=== PATIENT | female | born 1995 | race African-American/Black ===

== ENCOUNTER 2017-07-31 12:30 | Emergency (ER) | payer SELFPAY ==
--- NOTE | 2017-07-31 13:35 | EDM.PDOC ---
ED HPI GENERAL MEDICAL PROBLEM - General Chief Complaint: General Stated Complaint: BODY ACHES Time Seen by Provider: 07/31/17 13:06 Source of Information: Reports: Patient History Limitations: Reports: No Limitations - History of Present Illness INITIAL COMMENTS - FREE TEXT/NARRATIVE: 22-year-old female presents for evaluation and treatment of body aches. Patient reports she was sick with viral flulike symptoms about 3 weeks ago. These resolve. Now over the past week she has developed pain in her bilateral forearms , bilateral legs and low back. Reports the pain first started in her bilateral forearms. Over the last 2 days is now migrated to involve bilateral legs and low back. She reports that this feels like it is more muscular and not in the joints. Denies any joint swelling. She denies any fevers, chills, nausea, vomiting, abdominal pain, chest pain shunt, shortness of breath, urinary symptoms, numbness or tingling in the extremities, erythema or swelling in the arms or legs. Patient's approximately 5 weeks . Patient relocated to [place] from [place] in April. She went home to [place] for a visit again in June. No history of any sickle cell disease. States she's never had anything like this before. No recent strenuous workouts. 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 Generalized Pain Score (Numeric/FACES): 8 - Related Data Allergies Allergy/AdvReac Type Severity Reaction Status Date / Time banana Allergy Swelling Verified 07/31/17 12:42 Home Meds: Home Meds . [No Known Home Meds] 07/31/17 [History] Past Medical History [facility] History: Reports: Social & Family History - Family History Family Medical History: Noncontributory - Tobacco Use Smoking Status *Q: Former Smoker Years of Tobacco use: 1 Packs/Tins Daily: 0.5 Used Tobacco, but Quit: Yes Month Tobacco Last Used: 1 - Caffeine Use Caffeine Use: Reports: Soda, Tea - Recreational Drug Use Recreational Drug Use: No ED ROS GENERAL - Review of Systems Review Of Systems: See Below Constitutional: Reports: Other (reports bodyaches). Denies: Fever, Chills Respiratory: Denies: Shortness of Breath Cardiovascular: Denies: Chest Pain GI/Abdominal: Denies: Abdominal Pain, Nausea, Vomiting : Denies: Dysuria Musculoskeletal: Reports: Arm Pain (bilateral), Back Pain (lower back). Denies : Joint Pain, Joint Swelling Skin: Denies: Erythema Neurological: Denies: Numbness, Tingling, Weakness ED EXAM, GENERAL - Physical Exam Exam: See Below Exam Limited By: No Limitations General Appearance: Alert, WD/WN, No Apparent Distress, Obese Eye Exam: Bilateral Eye: Normal Inspection Ears: Normal External Exam Nose: Normal Inspection Throat/Mouth: Normal Inspection, Normal Voice, No Airway Compromise Neck: Normal Inspection Respiratory/Chest: No Respiratory Distress, Lungs Clear, Normal Breath Sounds, Chest Non-Tender Cardiovascular: Normal Peripheral Pulses, Regular Rate, Rhythm, No Murmur Peripheral Pulses: 3+: Radial (L), Radial (R), Posterior Tibial (L), Posterior Tibial (R), Dorsalis Pedis (L), Dorsalis Pedis (R) GI/Abdominal: Normal Bowel Sounds, Soft, Non-Tender Back Exam: Normal Inspection Extremities: Normal Inspection, Other (tendernes to palpation to the bilteral forearms) Neurological: Alert, Oriented, Normal Cognition, Normal Gait Psychiatric: Normal Affect, Normal Mood Skin Exam: Warm, Dry, Normal Color Course - Vital Signs Last Recorded V/S: Last Vital Signs Temp 36.4 C 07/31/17 12:44 Pulse 88 07/31/17 12:44 Resp 16 07/31/17 12:44 BP 124/70 07/31/17 12:44 Pulse Ox 100 07/31/17 12:44 - Orders/Labs/Meds Orders: Active Orders 24 hr Category Date Time Status CULTURE STREP A CONFIRMATION [] Stat Lab 07/31/17 13:33 Results STREP SCRN A RAPID W CULT CONF [] Stat Lab 07/31/17 13:33 Results Labs: Laboratory Tests 07/31/17 07/31/17 07/31/17 Range/Units 13:36 13:40 13:40 WBC 5.20 (3.98-10.04) K/mm3 RBC 4.24 (3.98-5.22) M/mm3 Hgb 11.9 (11.2-15.7) gm/L Hct 36.2 (34.1-44.9) % MCV 85.4 (79.4-94.8) fl MCH 28.1 (25.6-32.2) pg MCHC 32.9 (32.2-35.5) g/dl RDW Std Deviation 45.8 (36.4-46.3) fL Plt Count 354 (182-369) K/mm3 MPV 10.4 (9.4-12.3) fl Neutrophils % (Manual) 64 H (40-60) % Band Neutrophils % 0 (0-10) % Lymphocytes % (Manual) 34 (20-40) % Atypical Lymphs % 0 % Monocytes % (Manual) 0 L (2-10) % Eosinophils % (Manual) 2 (0.7-5.8) % Basophils % (Manual) 0 L (0.1-1.2) Platelet Estimate Adequate RBC Morph Comment Normal Sodium 140 (136-145) mEq/L Potassium 3.7 (3.5-5.1) mEq/L Chloride 103 (98-107) mEq/L Carbon Dioxide 25 (21-32) mEq/L Anion Gap 15.7 H (5-15) BUN 11 (7-18) mg/dL Creatinine 0.8 (0.55-1.02) mg/dL Est Cr Clr Drug Dosing 92.79 mL/min Estimated GFR (MDRD) > 60 (>60) mL/min BUN/Creatinine Ratio 13.8 L (14-18) Glucose 86 (74-106) mg/dL Calcium 9.4 (8.5-10.1) mg/dL Total Bilirubin 0.4 (0.2-1.0) mg/dL AST 31 (15-37) U/L ALT 27 (14-59) U/L Alkaline Phosphatase 77 (46-116) U/L C-Reactive Protein (<1.0) mg/dL Total Protein 8.2 (6.4-8.2) g/dl Albumin 3.7 (3.4-5.0) g/dl Globulin 4.5 gm/dL Albumin/Globulin Ratio 0.8 L (1-2) TSH 3rd Generation 0.925 (0.516-4.13) uIU/mL HCG, Quant 1102.0 mIU/mL Urine Color Yellow (Yellow) Urine Appearance Clear (Clear) Urine pH 7.5 (5.0-8.0) Ur Specific [place] 1.025 (1.005-1.030) Urine Protein 1+ H (Negative) Urine Glucose (UA) Negative (Negative) Urine Ketones Negative (Negative) Urine Occult Blood Negative (Negative) Urine Nitrite Negative (Negative) Urine Bilirubin Negative (Negative) Urine Urobilinogen 1.0 (0.2-1.0) Ur Leukocyte Esterase Negative (Negative) Urine RBC 0-5 (0-5) /hpf Urine WBC 0-5 (0-5) /hpf Ur Epithelial Cells 10-20 H (0-5) /hpf Amorphous Sediment Moderate H (NOT SEEN) /hpf Urine Bacteria Moderate H (FEW) /hpf Urine Mucus Many H (FEW) /hpf Monoscreen (NEGATIVE) 07/31/17 07/31/17 Range/Units 13:40 13:40 WBC (3.98-10.04) K/mm3 RBC (3.98-5.22) M/mm3 Hgb (11.2-15.7) gm/L Hct (34.1-44.9) % MCV (79.4-94.8) fl MCH (25.6-32.2) pg MCHC (32.2-35.5) g/dl RDW Std Deviation (36.4-46.3) fL Plt Count (182-369) K/mm3 MPV (9.4-12.3) fl Neutrophils % (Manual) (40-60) % Band Neutrophils % (0-10) % Lymphocytes % (Manual) (20-40) % Atypical Lymphs % % Monocytes % (Manual) (2-10) % Eosinophils % (Manual) (0.7-5.8) % Basophils % (Manual) (0.1-1.2) Platelet Estimate RBC Morph Comment Sodium (136-145) mEq/L Potassium (3.5-5.1) mEq/L Chloride (98-107) mEq/L Carbon Dioxide (21-32) mEq/L Anion Gap (5-15) BUN (7-18) mg/dL Creatinine (0.55-1.02) mg/dL Est Cr Clr Drug Dosing mL/min Estimated GFR (MDRD) (>60) mL/min BUN/Creatinine Ratio (14-18) Glucose (74-106) mg/dL Calcium (8.5-10.1) mg/dL Total Bilirubin (0.2-1.0) mg/dL AST (15-37) U/L ALT (14-59) U/L Alkaline Phosphatase (46-116) U/L C-Reactive Protein < 0.2 (<1.0) mg/dL Total Protein (6.4-8.2) g/dl Albumin (3.4-5.0) g/dl Globulin gm/dL Albumin/Globulin Ratio (1-2) TSH 3rd Generation (0.516-4.13) uIU/mL HCG, Quant mIU/mL Urine Color (Yellow) Urine Appearance (Clear) Urine pH (5.0-8.0) Ur Specific [place] (1.005-1.030) Urine Protein (Negative) Urine Glucose (UA) (Negative) Urine Ketones (Negative) Urine Occult Blood (Negative) Urine Nitrite (Negative) Urine Bilirubin (Negative) Urine Urobilinogen (0.2-1.0) Ur Leukocyte Esterase (Negative) Urine RBC (0-5) /hpf Urine WBC (0-5) /hpf Ur Epithelial Cells (0-5) /hpf Amorphous Sediment (NOT SEEN) /hpf Urine Bacteria (FEW) /hpf Urine Mucus (FEW) /hpf Monoscreen Negative (NEGATIVE) - Re-Assessments/Exams Free Text/Narrative Re-Assessment/Exam: 07/31/17 15:00 reviewed the labs with the patient. At this point etiology of her complaint unclear. Recommend close follow-up with family medicine and follow-up with OB for her . Discharge instructions as documented. Departure - Departure Time of Disposition: 15:01 Disposition: Home, Self-Care 01 Condition: Fair Clinical Impression: Body aches - Discharge Information Referrals: PCP,None [Primary Care Provider] - Blaine Daly MD [Physician] - Forms: ED Department Discharge Additional Instructions: [id number] Tylenol for pain. Also recommend using ice or heat for additional soreness relief. Follow-up with [facility]ILLER prepregnancy. Recommend Dr. Daly at the [facility]. Call [phone]. For continued care of muscle aches recommend follow- up with Dr. Carlson. Call [phone] to schedule with her. Please return to the ER if your symptoms change or worsen. - My Orders Last 24 Hours: My Active Orders 07/31/17 13:33 CULTURE STREP A CONFIRMATION [RM] Stat STREP SCRN A RAPID W CULT CONF [RM] Stat - Assessment/Plan Last 24 Hours: My Active Orders 07/31/17 13:33 CULTURE STREP A CONFIRMATION [RM] Stat STREP SCRN A RAPID W CULT CONF [RM] Stat
== END 2017-07-31 15:08 | disposition home or self-care (01) ==
LOC: JD.ED 12:30
DX: O99.89 Other specified diseases and conditions complicating pregnancy, childbirth and the puerperium (principal); M79.632 Pain in left forearm; M79.631 Pain in right forearm; M54.5 Low back pain; M79.604 Pain in right leg; M79.605 Pain in left leg; Z87.891 Personal history of nicotine dependence; Z91.018 Allergy to other foods; Z3A.01 Less than 8 weeks gestation of pregnancy
CPT/HCPCS: 36415; 80053; 81001; 84443; 84702; 85025; 86140; 86308; 87081; 87430; 99282; 99283

== ENCOUNTER 2017-08-11 12:58 | Emergency (ER) | payer MEDICAID ==
[2017-08-11] MEDS ORDERED: Sodium Chloride 0.9% 10 ML Syringe FLUSH PRN (13:47)
--- NOTE | 2017-08-11 14:21 | CT ---
Head CT Technique: Multiple axial sections through the brain were obtained. Intravenous contrast was not utilized. Comparison: No previous intracranial imaging. Findings: Ventricles along with basal cisterns and sulci over the convexities are within normal limits for the patient's age. No abnormal parenchymal densities are seen. No evidence of intracranial hemorrhage. No midline shift or mass effect is seen. Bone window settings were reviewed which shows no acute calvarial abnormality. Visualized sinuses are clear. Impression: 1. Nothing acute is appreciated on noncontrast head CT study. Diagnostic code #1
[2017-08-11] MEDS ORDERED: Acetaminophen Susp 325 MG/10.15 ML UD Cup PO ONE (15:46)
[2017-08-11] MEDS ORDERED: Ondansetron 4 MG Tab.DIS PO ONE (15:46)
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
[2017-08-11] MEDS ORDERED: Acetaminophen 325 MG Tab PO STA (16:06)
== END 2017-08-11 17:57 | disposition home or self-care (01) ==
LOC: JD.ED 12:58
DX: O99.89 Other specified diseases and conditions complicating pregnancy, childbirth and the puerperium (principal); R51 Headache; Z91.018 Allergy to other foods; Z87.891 Personal history of nicotine dependence; Z3A.01 Less than 8 weeks gestation of pregnancy
CPT/HCPCS: 36415; 70450; 80053; 81001; 84702; 85025; 99284; A9270